=== PATIENT | male | born 1995 | race Caucasian/White ===

== ENCOUNTER 2023-11-14 08:54 | Emergency (ER) | payer MEDICAID ==
[~2023-11-14] VITALS: Ht 188 cm; Wt 182.8 kg
[2023-11-14 09:15] VITALS: BP_SYST 150; PULSE 85; RESP 22; TEMP 98.3; O2SAT 98
[2023-11-14 09:46] LABS: INFLUENZA TYPE A Negative (NEGATIVE); INFLUENZA TYPE B NEGATIVE (NEGATIVE)
[2023-11-14] MEDS ORDERED: ALBMDI INH (09:51)
[2023-11-14] MEDS ORDERED: PRED20TA PO (09:51)
[2023-11-14 09:58] VITALS: BP_SYST 150; PULSE 85; RESP 22; TEMP 98.3; O2SAT 98
[2023-11-15] MEDS ORDERED: ZIT250 PO (04:43)
[2023-11-15] MEDS ORDERED: PRED50TA PO (04:43)
[2023-11-15] MEDS ORDERED: ALBMDI INH (04:43)
== END 2023-11-14 09:59 | disposition home or self-care (01) ==
LOC: SED 08:54
DX: J40 Bronchitis, not specified as acute or chronic (principal); Z20.822 Contact with and (suspected) exposure to COVID-19
CPT/HCPCS: 36415; 71045; 99284

== ENCOUNTER 2023-11-15 03:30 | Emergency (ER) | payer MEDICAID ==
[~2023-11-15] VITALS: Ht 188 cm; Wt 183.7 kg
[~2023-11-15 03:30] MED LIST: ALBMDI INH; PRED20TA PO
[2023-11-15 03:40] VITALS: BP_SYST 172; PULSE 99; RESP 20; TEMP 98; O2SAT 93
[2023-11-15] MEDS ORDERED: IPRATROPIUM BROM 0.5 MG/2.5 ML VIAL.NEB (ATROVENT) INH ONE (03:52)
[2023-11-15] MEDS: IPRATROPIUM BROM 0.5 MG/2.5 ML VIAL.NEB (ATROVENT) INH ONE (03:52)
[2023-11-15] MEDS ORDERED: ALBUTEROL SULFATE 0.083% 2.5 MG/3 ML VIAL.NEB INH ONE (03:52)
[2023-11-15] MEDS: ALBUTEROL SULFATE 0.083% 2.5 MG/3 ML VIAL.NEB INH ONE (03:52)
[2023-11-15] MEDS: predniSONE 20 MG TABLET PO ONE (03:56)
[2023-11-15 04:12] VITALS: O2SAT 97
[2023-11-15] MEDS ORDERED: PRED50TA PO (04:43)
[2023-11-15] MEDS ORDERED: ZIT250 PO (04:43)
[2023-11-15] MEDS ORDERED: ALBMDI INH (04:43)
== END 2023-11-15 05:02 | disposition home or self-care (01) ==
LOC: SED 03:30
DX: J20.9 Acute bronchitis, unspecified (principal); Z79.899 Other long term (current) drug therapy
CPT/HCPCS: 99283; 94640; J7512; 94760